=== PATIENT | female | born 1960 | race Caucasian/White ===

== ENCOUNTER → 2024-05-14 | Outpatient (CLI) | payer BC, MEDICARE, SELFPAY ==
--- NOTE | 2024-05-14 13:33 | XR_ITS ---
Examination: Knee, left , 3 views Technique: Knee AP, lateral, oblique 3 views Date and time of exam: 24 1415 hours INDICATIONS: Left knee swelling and pain beginning 4 days ago FINDINGS: Moderate osteopenia Moderate knee effusion No fracture Mild narrowing medial joint space IMPRESSION: Moderate knee effusion
== END | disposition home or self-care (01) ==
PROVIDERS: PCP Nurse Practitioner Family; Referring Provider Nurse Practitioner Family; Visit Provider Nurse Practitioner Family
DX: M25.462 Effusion, left knee (principal)
CPT/HCPCS: 73562

== ENCOUNTER → 2024-06-29 | Outpatient (CLI) | payer OTHER, SELFPAY ==
--- NOTE | 2024-06-29 08:00 | XR_ITS ---
Exam: MRI knee without contrast, left Date and time of exam: June 29, 2024 0858 hours INDICATIONS: Anterior medial left knee pain instability after twisting injury at work one month ago Technique: Multiple axial, coronal, and sagittal sections on the knee have been obtained. T2-Weighted sagittal, fat-suppressed images, TR 3,500, TE 62, T2 weighted coronal fat-saturated images, TR 3,500, TE 62 Proton density sagittal sections, TR 1800, TE 31. T-1 weighted coronal images, TR 524, TE 13.0 Findings: Medial meniscus anterior horn intact. Medial meniscus, body and. Posterior horn medial meniscus peripheral horizontal linear tear. Lateral meniscus anterior horn horizontal linear tear with vertical tear communicating inferior articular surface Lateral meniscus, body is intact Posterior horn lateral meniscus is intact Anterior cruciate ligament mild sprain Posterior cruciate ligament appears intact. Knee effusion is small. Quadriceps and patellar tendons appear intact. There is no evidence of tendinosis. Inflammatory change or fracture of Hoffa's fat pad is not seen. Medial patellar facet demonstrates moderate thinning. Lateral patellar facet cartilage demonstrates moderate thinning. Trochlear cartilage demonstrates moderate thinning. Marrow signal adequate Medial collateral ligament appears intact. No meniscocapsular separation is seen. Illiotibial band and fibular collateral ligament are intact. Biceps femoris tendons appear intact. Medial femoral condylar articular cartilage demonstrates moderate thinning. Lateral femoral condylar articular cartilage demonstratesmoderate thinning. Tibial plateau cartilage demonstrates moderate thinning. Impression: Meniscus tears as above Mild sprain anterior cruciate ligament
== END | disposition home or self-care (01) ==
PROVIDERS: PCP Family Medicine; Referring Provider Family Medicine; Visit Provider Family Medicine
DX: S83.512A Sprain of anterior cruciate ligament of left knee, initial encounter (principal); S83.242A Other tear of medial meniscus, current injury, left knee, initial encounter; X58.XXXA Exposure to other specified factors, initial encounter
CPT/HCPCS: 73721

== ENCOUNTER 2024-07-13 21:28 | Emergency (ER) | payer BC, MEDICARE, MEDICAID, SELFPAY ==
[2024-07-13 21:29] VITALS: BMI 28.3
[2024-07-13 22:02] VITALS: BP 157/90; PULSE 88; RESP 18; TEMP 36.9; O2SAT 99
--- NOTE | 2024-07-13 22:15 | PD.EDEXREM ---
ED Extremity Problem RME/HPI General Chief complaint: Extremity Problem,Nontraumatic Stated complaint: RIGHT SHOULDER PAIN X 1MON Time Seen by Provider: 07/13/24 21:38 Source: patient Arrival date/time: 07/13/24 21:28 63-year-old female with past medical history of right shoulder pain currently seeing branding specialist and has pending MRI presents emergency department complaining of acute flareup of right shoulder pain. Patient denies any recent trauma or injury. Mode of arrival: ambulatory Limitations: no limitations Related Data Home Medications ?Medication ?Instructions ?Recorded ?Confirmed levothyroxine 125 mcg capsule 225 mcg PO QDAY 01/14/19 04/04/19 propranolol 80 mg capsule,24 80 mg PO QDAY 04/04/19 04/04/19 hr,extended release (Inderal LA) Previous Rx's ?Medication ?Instructions ?Recorded cyclobenzaprine 10 mg tablet 10 mg PO TID PRN muscle spasm #10 07/13/24 tabs meloxicam 7.5 mg tablet 7.5 mg PO QDAY #10 tabs 07/13/24 Allergies Allergy/AdvReac Type Severity Reaction Status Date / Time Sulfa (Sulfonamide Allergy Intermediate RASH Verified 07/13/24 21:33 Antibiotics) codeine Allergy Unknown Rash Verified 07/13/24 21:33 lisinopril Allergy Rash Verified 07/13/24 21:33 [place]-ULQ-VkU Reductase Allergy Vomiting Verified 07/13/24 21:33 Inhibitor (Tjrlpxz-Hte-Css Reductase Inhibitor) Review of Systems Review of Systems Systems Reviewed: All systems reviewed, normal except as documented Constitutional Constitutional: Reports system reviewed and no additional complaints, except as documented, Denies body ache(s), Denies chills and Denies fever(s) Eyes Eyes: Reports system reviewed and no additional complaints, except as documented and Denies change in vision ENT Ears, Nose, Mouth, and Throat: Reports system reviewed and no additional complaints, except as documented, Denies disequilibrium, Denies dizziness, Denies sore throat and Denies vertigo Cardiovascular Cardiovascular: Reports system reviewed and no additional complaints, except as documented, Denies chest pain and Denies dyspnea Respiratory Respiratory: Reports system reviewed and no additional complaints, except as documented, Denies chest congestion, Denies cough and Denies dyspnea Gastrointestinal Gastrointestinal: Reports system reviewed and no additional complaints, except as documented, Denies abdominal pain, Denies nausea and Denies vomiting Musculoskeletal Musculoskeletal: Reports system reviewed and no additional complaints, except as documented, Denies abnormal gait and Reports arthralgias Integumentary/Breasts Skin/Breast: Reports system reviewed and no additional complaints, except as documented, Denies erythema, Denies rash and Denies wounds Neurologic Neurologic: Reports system reviewed and no additional complaints, except as documented, Denies abnormal gait, Denies disequilibrium, Denies dizziness and Denies vertigo Past Medical History Past Medical History CARDIAC: Positive Hypertension; Negative Cardiac Disorders or Congestive Heart Failure RESPIRATORY: Negative Chronic Obstructive Pulmonary Disease (COPD) or Asthma GENITOURINARY: Negative Renal Disease ENDOCRINE: Positive Endocrine Disorders, Hypothyroidism and Graves' Disease; Negative Diabetes Mellitus Type 1 or Diabetes Mellitus Type 2 HEMATOLOGIC: Negative Sickle Cell Disease Surgical History SURGICAL: Positive Section Social History SMOKING STATUS: Never smoker ED Exam General Limitations: Present no limitations General appearance: Present alert and in no apparent distress Head Head exam: Present atraumatic Eye Eye exam: Present normal appearance, PERRL and EOMI ENT ENT exam: Present normal exam, normal oropharynx and mucous membranes moist Neck Neck exam: Present normal inspection, full ROM and trachea midline Chest Chest inspection: Present normal inspection and symmetric chest wall rise Respiratory Respiratory exam: Present normal lung sounds bilaterally Cardiovascular Cardiovascular exam: Present regular rate, normal rhythm and normal heart sounds Abdominal Exam Abdominal exam: Present soft and normal bowel sounds Extremities Exam Extremities exam: Present normal inspection and full ROM Expanded Upper Extremity Exam Shoulder exam: Present full ROM (Limited active range of motion right shoulder); Absent tenderness, swelling, ecchymosis or deformity Vascular exam: Normal capillary refill Back Exam Back exam: Present normal inspection and full ROM Neurological Exam Neurological exam: Present alert, oriented X3 and CN II-XII intact Psychiatric Psychiatric exam: Present normal affect and normal mood Skin Skin exam: Present warm, dry, intact and normal color Course Quality Measures none Orders Category Date Time Status Dexamethasone Inj [Decadron Inj] Med 07/13/24 23:41 Discontinued 10 mg IM X1 ONE Diazepam [Valium] Med 07/13/24 22:15 Discontinued 5 mg PO X1 ONE Ketorolac Inj [Toradol Inj] Med 07/13/24 22:15 Discontinued 30 mg IM X1 ONE traMADol HCL [Ultram] Med 07/13/24 23:38 Discontinued 50 mg PO X1 ONE Vital Signs Vital signs: Vital Signs Temperature 98.5 F 02/17/25 22:02 Pulse Rate 88 07/13/24 22:02 Respiratory Rate 18 07/13/24 22:02 Blood Pressure 157/90 H 07/13/24 22:02 Pulse Oximetry (%) 99 07/13/24 22:02 Oxygen Delivery Method Room Air 07/13/24 22:02 99% room air within normal limits Extremity Problem MDM Narrative MDM Narrative:: 63-year-old female with past medical history of right shoulder pain currently seeing branding specialist and has pending MRI presents emergency department complaining of acute flareup of right shoulder pain. Patient denies any recent trauma or injury. Patient's right upper extremity neurovascularly intact with limited active range of motion. Right shoulder no signs of infection erythema swelling or induration. Patient given steroids and pain medication and reported significant improvement in pain. Patient discharged ducted to follow-up with primary care provider and branding specialist as discussed. Patient data External records reviewed:: [facility] previous records Clinical information provided by:: patient Social determinants that could affect healthcare access:: none Patient has the following chronic illnesses:: See chart How is presenting disease/condition affected by chronic disease/condition?: exacerbated by Evaluation data The following diagnostics were reviewed and interpreted by me:: other (specify) (N/A) Lab and/or radiology exams considered but not ordered:: N/A Interpretation Summary: N/A Medications / Prescriptions Medications or Prescriptions considered but not ordered:: Ordered Medication administrations:: Medication Administration History Discontinued Medications Dexamethasone Sodium Phosphate (Dexamethasone Sod Phos Inj 10 Mg/Ml Vial) 10 mg IM X1 ONE Stop: 07/13/24 23:42 Last Admin: 07/13/24 23:47 Dose: 10 mg Documented By: RODRIGUEZ Diazepam (Diazepam 5 Mg Tablet) 5 mg PO X1 ONE Stop: 07/13/24 22:16 Last Admin: 07/13/24 22:21 Dose: 5 mg Documented By: EO Ketorolac Tromethamine (Ketorolac Inj 60 Mg/2 Ml Vial) 30 mg IM X1 ONE Stop: 07/13/24 22:16 Last Admin: 07/13/24 22:22 Dose: 30 mg Documented By: EO Tramadol HCl (Tramadol Hcl 50 Mg Tablet) 50 mg PO X1 ONE Stop: 07/13/24 23:39 Last Admin: 07/13/24 23:47 Dose: 50 mg Documented By: KF Given Consultations Consultation(s) initiated? (list below): No Diagnosis Extremity Problem Differential Diagnosis: deep venous thrombosis of upper extremity and other (Calcific tendinitis) Most likely diagnosis given after review of the tests above:: Patient right shoulder Admission Indicated Admission indicated?: not indicated Admission Request Was there a request for admission?: No Disposition Plan Disposition Plan: Discharge Discharge Attestation Discharge Attestation: The patient and all family members were given an opportunity to ask questions and understood the discharge instructions. Discharge instructions specifically effects, indications for sooner follow up or return to the emergency department, and the expected course of current diagnosis. Patient condition: Stable Discharge Plan Plan Patient Disposition: HOME (Self Care) Disposition Comment: Stable Prescriptions/Referrals Prescriptions/Med Rec: New cyclobenzaprine 10 mg tablet 10 mg PO TID PRN (Reason: muscle spasm) Qty: 10 0RF meloxicam 7.5 mg tablet 7.5 mg PO QDAY Qty: 10 0RF No Action levothyroxine 125 mcg capsule 225 mcg PO QDAY propranolol [Inderal LA] 80 mg Capsule,Extended Release 24 Hr 80 mg PO QDAY Problem List Clinical Impression: Pain in right shoulder Patient/Caregiver Discharge Instructions Discharge Activity: activity as tolerated Education Materials: MU, ED Arthralgia, ED RICE Additional Instructions: Take pain medication as prescribed. Do not take ibuprofen concurrently with meloxicam. Rest, ice, compress, and elevate affected extremity. Follow-up with primary care provider and branding specialist Dr. Segura as discussed. Return to the emergency department for any worsening symptoms or as needed. Print Language: Congolese Stand Alone Forms: [facility]alle Award Info., Patient Portal Info Letter PA/ULTRASOUND MANAGER Supervising Physician PA/ULTRASOUND MANAGER Supervising Physician: Dr. Lebron
[2024-07-13] MEDS: DIAZEPAM 5 MG TABLET PO (22:21)
[2024-07-13] MEDS: KETOROLAC INJ 60 MG/2 ML VIAL 30 MG IM (22:22)
[2024-07-13] MEDS: traMADol HCL 50 MG TABLET PO (23:47)
[2024-07-13] MEDS: DEXAMETHASONE SOD PHOS INJ 10 MG/ML VIAL IM (23:47)
== END 2024-07-14 00:01 | disposition home or self-care (01) ==
LOC: SERX 23:51
PROVIDERS: Emergency Provider Emergency Medicine; PCP Nurse Practitioner Family
DX: M25.511 Pain in right shoulder (principal)
CPT/HCPCS: 96372; 99283; J1100; J1885; A9270

== ENCOUNTER → 2024-07-29 | Outpatient (CLI) | payer BC, MEDICARE, MEDICAID, SELFPAY ==
--- NOTE | 2024-07-29 13:02 | XR_ITS ---
EXAMINATION: Cervical spine, 5 views Technique: Cervical spine AP, AP odontoid, lateral, bilateral obliques, 5 views Exam date and time: July 29, 2024 1334 hours INDICATIONS: Onset neck pain beginning one week ago. FINDINGS: Fusion C5-C6 Advanced degenerative disc disease C6-C7 with moderate bilateral neural foraminal stenosis No fracture Intact odontoid IMPRESSION: Advanced degenerative disc disease C6-C7
--- NOTE | 2024-07-29 13:02 | XR_ITS ---
Examination: Thoracic spine 3 views TECHNIQUE: AP lateral coned lateral upper dorsal spine 3 views Exam date and time: July 30, 2023 1355 hours INDICATIONS: Upper back pain beginning one week ago. FINDINGS: Moderate osteopenia Upper thoracic dextroscoliosis 10 degrees No acute thoracic fracture Moderate diffuse thoracic degenerative disc disease IMPRESSION: Moderate diffuse thoracic degenerative disc disease
--- NOTE | 2024-07-29 13:02 | XR_ITS ---
Examination: Lumbar spine, 5 views Technique: Lumbar spine AP, lateral, coned lateral lower lumbar spine, bilateral obliques 5 views Exam date and time: July 29, 2024 1334 hours INDICATIONS: Low back pain beginning one week ago FINDINGS: Lumbar levoscoliosis 10 degrees Moderate diffuse facet arthropathy No lumbar fracture Moderate degenerative disc disease L4-L5 No spondylolisthesis IMPRESSION: Moderate degenerative disc disease L4-L5
== END | disposition home or self-care (01) ==
PROVIDERS: PCP Nurse Practitioner Family; Referring Provider Nurse Practitioner Family; Visit Provider Nurse Practitioner Family
DX: M50.323 Other cervical disc degeneration at C6-C7 level (principal); M51.369 Other intervertebral disc degeneration, lumbar region without mention of lumbar back pain or lower extremity pain; M51.34 Other intervertebral disc degeneration, thoracic region
CPT/HCPCS: 72050; 72072; 72110

== ENCOUNTER → 2024-08-18 | Outpatient (CLI) | payer BC, SELFPAY ==
[2024-08-18 11:37] LABS: Basophils # (Auto) 0.1 Thou/mm3 (0.0-0.2); Basophils % (Auto) 1 % (0-2.5); Eosinophils # (Auto) 0.1 Thou/mm3 (0.0-0.5); Eosinophils % (Auto) 2 % (0-10); Hematocrit 37.4 % (36.0-46.0); Hemoglobin 11.5 g/dL (12.0-16.0); Immature Granulocytes % (Auto) 0 % (0-0); Immature Granulocytes Auto 0.02 Thou/mm3 (0.00-0.00); Lymphocytes # (Auto) 1.8 Thou/mm3 (1.0-4.8); Lymphocytes % (Auto) 22 % (10-50); Mean Corpuscular HGB Conc 30.7 g/dl (31.0-37.0); Mean Corpuscular Hemoglobin 24.5 pg (25.0-35.0); Mean Corpuscular Volume 80 fL (80-100); Monocytes # (Auto) 0.7 Thou/mm3 (0.0-0.8); Monocytes % (Auto) 8 % (0-12); Neutrophils # (Auto) 5.5 Thou/mm3 (1.8-7.7); Neutrophils % (Auto) 68 % (37-80); Nucleated Red Blood Cell % 0 /100 WBC (0); Platelet Count 458 Thou/mm3 (140-440); RDW Standard Deviation 44.8 fL (36.4-46.3); Red Blood Count 4.69 Miln/mm3 (4.00-5.20); White Blood Count 8.2 Thou/mm3 (3.6-11.0)
[2024-08-18 11:51] LABS: Sed Rate (ESR) 29 mm/hr (0-30)
[2024-08-18 15:55] LABS: Glucose Estimated Average 111 mg/dL (80-131); Hemoglobin A1C 5.5 % Hgb (4.8-6.0)
[2024-08-18 20:45] LABS: Alanine Aminotransferase 18 U/L (10-49); Albumin, Serum 4.3 gm/dL (3.4-4.8); Albumin/Globulin Ratio 1.8 (1.2-2.2); Alkaline Phosphatase 165 U/L (46-116); Anion Gap 8 (7-16); Aspartate Amino Transferase 15 U/L (0-34); BUN/Creatinine Ratio 19 Ratio (12-20); Bilirubin,Total 0.4 mg/dL (0.3-1.2); Blood Urea Nitrogen 13 mg/dL (9-23); C-Reactive Protein 0.9 mg/dL (0.0-0.9); Calcium 9.3 mg/dL (8.3-10.6); Calcium (Corrected) 9.3 mg/dL (8.5-10.1); Carbon Dioxide 26.3 mMol/L (20.0-31.0); Cardiac Risk Estimate 2.4 RATIO (3.7-5.6); Chloride 106 mMol/L (98-107); Cholesterol 150 mg/dL (132-200); Creatine Kinase 32 U/L (34-171); Creatinine (Component) 0.7 mg/dL (0.6-1.3); Free T4 (Free Thyroxine) 2.36 ng/dL (0.89-1.76); Globulin 2.4 gm/dL (2.3-3.5); Glucose 81 mg/dL (74-106); HDL Cholesterol 62 mg/dL (40-60); LDL Cholesterol,Calculated 64 mg/dL (0-130); Osmolality,Calculated 278 (275-295); Potassium 4.3 mMol/L (3.4-5.1); Sodium 140 mMol/L (136-145); Thyroid Stimulating Hormone 0.05 uIU/mL (0.55-4.78); Total Protein 6.7 gm/dL (5.7-8.2); Triglycerides 121 mg/dL (30-150); eGFR > 60 See Note
[2024-08-26 06:43] LABS: ANA Screen, IFA NEGATIVE (NEGATIVE)
== END | disposition home or self-care (01) ==
PROVIDERS: PCP Internal Medicine; Referring Provider Internal Medicine; Visit Provider Internal Medicine
DX: E03.9 Hypothyroidism, unspecified (principal); I10 Essential (primary) hypertension; R53.83 Other fatigue; R21 Rash and other nonspecific skin eruption; M25.512 Pain in left shoulder; M25.511 Pain in right shoulder; R20.2 Paresthesia of skin
CPT/HCPCS: 36415; 80053; 80061; 82550; 83036; 84439; 84443; 85025; 85652; 86038; 86140

== ENCOUNTER → 2024-09-01 | Outpatient (CLI) | payer BC, SELFPAY ==
--- NOTE | 2024-09-01 09:00 | XR_ITS ---
Examination: Screening digital mammography, bilateral Computer aided detection 3-D breast Tomosynthesis, bilateral Date and time of exam: 09/01/2024, 8:35 AM Comparisons: 07/14/2015 Indications: Screening Technique: Nonmagnified MLO, CC views of the breasts to been obtained, reconstructed from 3-D Tomosynthesis images. R2 computer aided detection program utilized for evaluation of suspicious masses and/or abnormal calcifications. 3-D Tomosynthesis images obtained. Technologist: Findings: There are scattered areas of fibroglandular density. No evidence of abnormal masses or suspicious calcifications. Impression: BI-RADS category 1: Negative findings (within normal) Recommend 1 year follow-up mammogram
== END | disposition home or self-care (01) ==
LOC: CDIM 08:27
PROVIDERS: Referring Provider Internal Medicine; Visit Provider Internal Medicine
DX: Z12.31 Encounter for screening mammogram for malignant neoplasm of breast (principal); R92.313 Mammographic fatty tissue density, bilateral breasts
CPT/HCPCS: 77063; 77067

== ENCOUNTER → 2024-10-26 | Outpatient (CLI) | payer BC, MEDICARE, MEDICAID, SELFPAY ==
--- NOTE | 2024-10-26 08:00 | XR_ITS ---
Examination: MRI cervical spine without intravenous contrast Date and time of exam: October 26, 2024 0927 hours INDICATIONS: Sudden onset neck pain beginning 8 months ago Technique: Multiple axial and sagittal sections of the cervical spine to been obtained. T2 weighted sagittal sections, TR 3, 270, TE 117 T1-weighted sagittal sections, TR 500, TE 11 T1-weighted axial sections, TR 607, TE 12, axial sections TR 18, TE 27 and T2 weighted transverse sections, TR 3920, TE 122. Findings: Adequate alignment cervical vertebral bodies Advanced disc narrowing C5-C6, C6-C7 No cervical fracture Hemangiomatous change T2 Localized enlargement cervical cord C2-C3 no disc protrusion C3-C4 right uncinate process hypertrophy advanced right neural foraminal stenosis C4-C5 uncinate process hypertrophy advanced right neural foraminal stenosis C5-C6 moderate bilateral neural foraminal stenosis C6-C7 3 mm central subarticular osteophyte disc complex, advanced left moderate right neural foraminal stenosis C7-T1 moderate bilateral neural foraminal stenosis IMPRESSION: C3-C4, C4-C5 advanced right neural foraminal stenosis C5-C6, C7-T1 moderate bilateral neural foraminal stenosis C6-C7 3 mm central subarticular osteophyte disc complex, advanced left moderate right neural foraminal stenosis
== END | disposition home or self-care (01) ==
LOC: SMRI 09:06
PROVIDERS: PCP Internal Medicine; Referring Provider Internal Medicine; Visit Provider Internal Medicine
DX: M48.02 Spinal stenosis, cervical region (principal); M48.03 Spinal stenosis, cervicothoracic region
CPT/HCPCS: 72141

== ENCOUNTER → 2025-01-18 | Outpatient (CLI) | payer OTHER, SELFPAY ==
--- NOTE | 2025-01-18 09:33 | XR_ITS ---
Examination: Bilateral wrists 6 views TECHNIQUE: AP oblique and lateral uterus total 6 views Date and time: January 18, 2025 0935 hours INDICATIONS: Bilateral wrist pain beginning 9 months ago. FINDINGS: Significant osteopenia Bilateral moderate osteoarthritis, including radiocarpal, intercarpal and especially the first carpometacarpal joints No erosive arthritis No fractures IMPRESSION: Moderate osteoarthritis
== END | disposition home or self-care (01) ==
LOC: CDIM 09:30
PROVIDERS: PCP Internal Medicine; Referring Provider Nurse Practitioner Family; Visit Provider Nurse Practitioner Family
DX: M19.032 Primary osteoarthritis, left wrist (principal); M19.031 Primary osteoarthritis, right wrist
CPT/HCPCS: 73110

== ENCOUNTER 2025-02-10 09:44 | Inpatient (IN) | payer BC, SELFPAY ==
[2025-02-10] VITALS (8 sets, daily range): BP systolic 153–176; BP diastolic 72–98; PULSE 74–108; RESP 14–25; TEMP 36.1–37.1; O2SAT 87–100; BMI 29.6
--- NOTE | 2025-02-10 10:05 | XR_ITS ---
Examination: PA lateral chest 2 views TECHNIQUE: Upright PA lateral chest 2 views Date and time: February 10, 2025 10:10 AM, comparison December 24, 2018 INDICATIONS: Chest pain shortness of breath beginning one week ago. FINDINGS: Retrocardiac gastric hernia. Normal heart size. No lobar pneumonia or pulmonary edema IMPRESSION: No lobar pneumonia or pulmonary edema
--- NOTE | 2025-02-10 10:05 | EDRME_ITS ---
Rapid Medical Screening Exam E Arrival date/time: 02/10/25 09:44 64-year-old female presents the emergency room today for complaints of left- sided lung pain reports shortness of breath ongoing x 1 week Chief Complaint: Chest Pain Vital signs: Vital Signs Temperature 98.8 F 02/10/25 09:49 Pulse Rate 102 H 02/10/25 09:49 Respiratory Rate 18 02/10/25 09:49 Blood Pressure 156/75 H 02/10/25 09:49 Pulse Oximetry (%) 97 02/10/25 09:49 Oxygen Delivery Method Room Air 02/10/25 09:49
--- NOTE | 2025-02-10 10:05 | EKG_ITS ---
[facility] Test Date: 2025-02-10 Pat Name: AD BECK Department: Room: - Gender: Female Workgroup Leader: : 1960 Requested By: Neel Mas (KATARINA) Order Number: [id number] Reading MD: Neel Mas (SENIOR REVENUE ACCOUNTANT) Measurements Intervals [place] Rate: 105 P: 46 TN: 170 QRS: 14 QRSD: 72 T: 33 QT: 307 QTc: 407 Interpretive Statements SINUS TACHYCARDIA NONSPECIFIC ST ELEVATION [0.05+ mV ST ELEVATION] ABNORMAL RHYTHM ECG No previous ECG available for comparison /store/S0/[id number].pdf
[2025-02-10 10:19] LABS: Basophils # (Auto) 0.1 Thou/mm3 (0.0-0.2); Basophils % (Auto) 1 % (0-2.5); Eosinophils # (Auto) 0.2 Thou/mm3 (0.0-0.5); Eosinophils % (Auto) 3 % (0-10); Hematocrit 28.6 % (36.0-46.0); Immature Granulocytes Auto 0.02 Thou/mm3 (0.00-0.00); Lymphocytes # (Auto) 1.6 Thou/mm3 (1.0-4.8); Lymphocytes % (Auto) 22 % (10-50); Mean Corpuscular HGB Conc 28.0 g/dl (31.0-37.0); Mean Corpuscular Hemoglobin 19.6 pg (25.0-35.0); Mean Corpuscular Volume 70 fL (80-100); Monocytes # (Auto) 0.5 Thou/mm3 (0.0-0.8); Monocytes % (Auto) 7 % (0-12); Neutrophils # (Auto) 4.9 Thou/mm3 (1.8-7.7); Neutrophils % (Auto) 67 % (37-80); Nucleated Red Blood Cell # 0.00 Thou/mm3 (0.00-0.00); Nucleated Red Blood Cell % 0 /100 WBC (0); Platelet Count 531 Thou/mm3 (140-440); RDW Standard Deviation 43.2 fL (36.4-46.3); Red Blood Count 4.09 Miln/mm3 (4.00-5.20); White Blood Count 7.4 Thou/mm3 (3.6-11.0)
[2025-02-10 10:25] LABS: Hemoglobin 8.0 g/dL (12.0-16.0)
[2025-02-10 10:40] LABS: Alanine Aminotransferase 25 U/L (10-49); Albumin, Serum 4.1 gm/dL (3.4-4.8); Albumin/Globulin Ratio 1.6 (1.2-2.2); Alkaline Phosphatase 183 U/L (46-116); Anion Gap 9 (7-16); Aspartate Amino Transferase 13 U/L (0-34); BUN/Creatinine Ratio 14 Ratio (12-20); Bilirubin,Total 0.4 mg/dL (0.3-1.2); Blood Urea Nitrogen 10 mg/dL (9-23); Calcium 9.1 mg/dL (8.3-10.6); Calcium (Corrected) 9.1 mg/dL (8.5-10.1); Carbon Dioxide 27.4 mMol/L (20.0-31.0); Chloride 106 mMol/L (98-107); Creatinine (Component) 0.7 mg/dL (0.6-1.3); Estimated Creatinine Clearance 74.2 mL/min (>60); Globulin 2.6 gm/dL (2.3-3.5); Glucose 122 mg/dL (74-106); Osmolality,Calculated 283 (275-295); Potassium 4.0 mMol/L (3.4-5.1); Sodium 142 mMol/L (136-145); Total Protein 6.7 gm/dL (5.7-8.2); Troponin I < 0.020 ng/mL (0.0-0.045); eGFR > 60 See Note
--- NOTE | 2025-02-10 11:59 | XR_ITS ---
Examination: CTA chest with intravenous contrast 2-D reconstructions 3-D reconstructions, vascular Date and time of exam: February 10, 2025 1419 hours INDICATIONS: Left-sided chest pain shortness of breath today, clinical diagnosis pulmonary emboli CTDI: vol (mGy) 12.1 DLP: (mGycm) 280 Technique: Multiple axial sections of the thorax have been obtained. 3 mm slice thickness, from below the hemidiaphragms to above the apices of the lungs. Mediastinal and lung density settings have been obtained. 2-D sagittal and coronal reconstructions. 3-D angiographic renderings, 3-D volume renderings, 3D post processing, vascular maximum intensity projections obtained. Contrast administered is 100 cc Isovue-370. Low dose protocols were performed. One or more of the following dose reduction techniques were used; automated exposure control, adjustment of the mA and/or KV according to patient size, use of iterative reconstruction technique. Findings: No thoracic aortic aneurysm dilatation or dissection No pulmonary artery filling defects No paratracheal tracheobronchial or bronchopulmonary adenopathy No pneumonia or pulmonary edema or pleural disease No visualized liver or splenic lesion No gallstones IMPRESSION: Negative for pulmonary artery emboli No pneumonia, pulmonary edema or pleural disease
--- NOTE | 2025-02-10 12:01 | EDNOTE_ITS ---
<Statement entered by Tracey Schulz MD - 03/01/25 06:07> As co-signing physician, I was present and available for consult prn. I concur with the plan and care as documented by the midlevel provider. ED Chest Pain RME/HPI General Chief Complaint: Chest Pain Stated Complaint: LEFT LUNG PAIN Time Seen by Provider: 02/10/25 11:51 Arrival date/time: 02/10/25 09:44 RME / HPI RME / HPI narrative: 64-year-old female presents the emergency room today for complaints of left- sided lung pain reports shortness of breath ongoing x 1 week. Described as sharp pain, severity moderate. Pain is worse with the pressing and range of motion of the shoulder joints. Patient denies any cough denies any shortness of breath. Denies any chest trauma or fall denies any fever. Denies any other complaints no medication was taken prior to ER visit. Related Data Home Medications ?Medication ?Instructions ?Recorded ?Confirmed levothyroxine 125 mcg capsule 225 mcg PO QDAY 01/14/19 04/04/19 propranolol 80 mg capsule,24 80 mg PO QDAY 04/04/19 hr,extended release (Inderal LA) Previous Rx's ?Medication ?Instructions ?Recorded cyclobenzaprine 10 mg tablet 10 mg PO TID PRN muscle s pasm #10 07/13/24 tabs meloxicam 7.5 mg tablet 7.5 mg PO QDAY #10 tabs 06/27 12/18 Allergies Allergy/AdvReac Type Severity Reaction Status Date / Time Sulfa (Sulfonamide Allergy Intermediate RASH Verified 07/13/24 21:33 Antibiotics) codeine Allergy Unknown Rash Verified 07/13/24 21:33 lisinopril Allergy Rash Verified 07/13/24 21:33 Kxuepum-FXT-UwJ Reductase Allergy Vomiting Verified 07/13/24 21:33 Inhibitor (Laniojs-Agh-Ewn Reductase Inhibitor) Review of Systems Review of Systems Narrative Review of Systems: Review of system reviewed and within normal limits except mentioned in HPI ED Exam Narrative Physical exam: VITAL SIGNS: Reviewed. GENERAL APPEARANCE: Alert and interactive, follows commands, no acute distress, HEAD AND FACE: Non-traumatic. ENT: PERRL, pink conjunctivitis, eyelid no trauma, Mucous membrane moist. NECK: Supple, nontender, no nuchal rigidity. CHEST: Left chest tenderness, no crepitus, no paradoxical movement, no retractions. LUNGS: Clear, well ventilated, symmetric, no rales, no wheezing, no ronchi, no stridor, good breath sounds bilaterally. HEART: Regular rate, regular rhythm, no murmur, no gallops. ABDOMEN: Soft, positive bowel sounds, nondistended, no guarding, nontender, no rebound, no masses, RECTAL: Deferred. GENITAL: Deferred. NEUROLOGICAL: Gross motor function intact sensory function intact, Appropriate for age. MUSCULOSKELETAL: low back nontender, full range of motion. EXTREMITIES: Nontender, full range of motion. SKIN: Color pink, dry, no rash, no lacerations, no abrasions, no contusions. LYMPHATICS: Deferred. Course Quality Measures none Orders Category Date Time Status CT Screening NOW Care 02/10/25 11:59 Active EKG (ED ONLY) *Do not use* NOW Care 02/10/25 10:05 Completed NPO NOW Care 02/10/25 15:43 Active Occult Blood,Stool (Nursing) ONCE Care 02/10/25 11:59 Active Consult to Gastroenterology Stat Cons 02/10/25 15:07 Ordered Diet NPO (NOW) Diet 02/10/25 15:[address] angio chest Stat Exams 02/10/25 11:59 Completed EKG (ED Only) Stat Exams 02/10/25 10:05 Draft XR chest 2V Stat Exams 02/10/25 10:05 Completed CBC Stat Lab 02/10/25 10:10 Completed Comprehensive Metabolic Panel Stat Lab 02/10/25 10:10 Completed PTT [Partial Thromboplastin Time] Stat Lab 02/10/25 10:10 Completed Troponin I Stat Lab 02/10/25 10:10 Completed HYDROmorphone INJ [Dilaudid Inj] Med 02/10/25 11:59 Discontinued 1 mg IVP X1 ONE Ondansetron Inj [Zofran Inj] Med 02/10/25 11:59 Discontinued 4 mg IVP X1 ONE Pantoprazole Inj [Protonix Inj] Med 02/10/25 15:06 Discontinued 80 mg IVP X1 ONE Vital Signs Vital signs: Vital Signs Temperature 98.8 F 02/10/25 09:49 Pulse Rate 102 H 02/10/25 09:49 Respiratory Rate 18 02/10/25 09:49 Blood Pressure 156/75 H 02/10/25 09:49 Pulse Oximetry (%) 97 02/10/25 09:49 Oxygen Delivery Method Room Air 02/10/25 09:49 Chest Pain [facility] Narrative [facility] Narrative:: 64-year-old female presents the emergency room today for complaints of left- sided lung pain reports shortness of breath ongoing x 1 week. Described as sharp pain, severity moderate. Pain is worse with the pressing and range of motion of the shoulder joints. Patient denies any cough denies any shortness of breath. Denies any chest trauma or fall denies any fever. Denies any other complaints no medication was taken prior to ER visit. EKG shows sinus tachycardia, ventricular to 105 bpm, no ST segment elevation depression noted. Laboratory workup including troponin all came back normal. R epeat troponin is not needed at this time patient is having chest pain for 1 week now. Patient chest pain is not reproducible could be secondary to costochondritis. Patient's hemoglobin is significantly lower today 8.0 and hematocrit of 28.6, last July it was 11.5. I did a rectal exam, and it was strong positive for occult blood. Patient is probably having slow GI bleed. Spoke with hospitalist, who admitted the patient. Patient was started on Protonix IV. I also spoke with GI specialist Dr. Mccallum, discussed the case, and will scope the patient tomorrow. Patient data External records reviewed:: None Clinical information provided by:: patient Social determinants that could affect healthcare access:: none Patient has the following chronic illnesses:: None How is presenting disease/condition affected by chronic disease/condition?: no chronic disease Evaluation data The following diagnostics were reviewed and interpreted by me:: lab results, radiology exam(s) and EKG tracing(s) Lab and/or radiology exams considered but not ordered:: None see results MDM Interpretation Summary: See results MDM Medications / Prescriptions Medications or Prescriptions considered but not ordered:: None Medication administrations:: Medication Administration History Discontinued Medications Hydromorphone HCl (Hydromorphone Inj 2 Mg/Ml Vial) 1 mg IVP X1 ONE Stop: 02/10/25 12:00 Last Admin: 02/10/25 12:47 Dose: 1 mg Documented By: OPAL Ondansetron HCl (Ondansetron Inj 2 Mg/Ml Inj 2 Ml) 4 mg IVP X1 ONE; Protocol Stop: 02/10/25 12:00 Last Admin: 02/10/25 12:47 Dose: 4 mg Documented By: TM Pantoprazole Sodium (Pantoprazole Inj 40 Mg Vial) 80 mg IVP X1 ONE Stop: 02/10/25 15:07 Last Admin: 02/10/25 15:39 Dose: 80 mg Documented By: OPAL Protonix Zofran and Dilaudid Consultations Consultation(s) initiated? (list below): No Diagnosis Chest Pain Differential Diagnosis: pneumothorax, costochondritis and chest pain Most likely diagnosis given after review of the tests above:: Upper GI bleed, anemia, chest pain, costochondritis Admission Indicated Admission indicated?: indicated Admission Request Was there a request for admission?: Yes Admission Attestation Admission request attestation: Discussed case with [Dr. Huitron] from Hospitalist service regarding admission. Discussed patients ED course, exam findings, labs, and radiology results. The Hospitalist [agrees,] to accept the patient for admission. Disposition Plan Disposition Plan: Admit Discharge Plan Plan Patient Disposition: Admit Acute Care w/in Hospital Discharge Disposition comment: Stable Prescriptions/Referrals Prescriptions/Med Rec: No Action levothyroxine 125 mcg capsule 225 mcg PO QDAY propranolol [Inderal LA] 80 mg Capsule,Extended Release 24 Hr 80 mg PO QDAY cyclobenzaprine 10 mg tablet 10 mg PO TID PRN (Reason: muscle spasm) Qty: 10 0RF meloxicam 7.5 mg tablet 7.5 mg PO QDAY Qty: 10 0RF Referrals: Abe Rivera DO [Primary Care Provider] - In 1 week Problem List Clinical Impression: Chest pain, UGIB (upper gastrointestinal bleed), Anemia Patient/Caregiver Discharge Instructions Discharge Activity: activity as tolerated Education Materials: Anemia Print Language: Luxembourgish Stand Alone Forms: [facility] Award Info., Patient Portal Info Letter
[2025-02-10 12:23] LABS: Partial Thromboplastin Time 21.6 Seconds (22.0-36.0)
[2025-02-10] MEDS: ONDANSETRON INJ 2 MG/ML INJ 2 ML 4 MG IVP (12:47)
[2025-02-10] MEDS: HYDROmorphone INJ 2 MG/ML VIAL 1 MG IVP (12:47)
[2025-02-10 17:24] LABS: Hematocrit 27.9 % (36.0-46.0)
[2025-02-10 17:26] LABS: Hemoglobin 7.7 g/dL (12.0-16.0)
--- NOTE | 2025-02-10 17:26 | ESCONSULT_ITS ---
HPI Data of Consult Primary Care Provider: Abe Rivera DO Consult Narrative Reason for consult: Positive FOBT with anemia History of present illness: 64-year-old female with PMH of thyroid disease on levothyroxine presents to the ED for evaluation of left-sided chest pain described as ?lung pain? and associated shortness of breath for 1 week. Pain was sharp, moderate, worse with palpation and shoulder movement. ED workup included CTA chest (negative for PE, pneumonia, pulmonary edema), CXR negative, EKG sinus tachycardia 105 bpm without ischemic changes, troponins negative. Chest pain suspected musculoskeletal/costochondritis. Incidentally, labs showed hemoglobin 8.0 (previously 11.5 in July), Hct 28.6, MCV 70, platelets 531. Rectal exam was strongly positive for occult blood. She was started on IV Protonix. On GI evaluation, patient denies hematemesis, melena, hematochezia, nausea, or vomiting. Reports looser stools over the past month but no meron blood. Denies NSAID, aspirin, or anticoagulant use. Denies fevers, weight loss, or abdominal pain. She reports feeling somewhat lightheaded but denies chest pain or shortness of breath currently. No prior colonoscopy or EGD. ROS: * Constitutional: No fevers, chills, or weight loss * GI: Loose stools x1 month, denies hematemesis, melena, hematochezia, abdominal pain, nausea, or vomiting * : No dysuria, hematuria * Cardiac: Denies chest pain, palpitations * Pulm: Denies cough, SOB at rest PMH: Thyroid disease PSH: * 3x C-sections * Laminectomy/discectomy L4-L5 * Cervical spine surgery C5-C6 Medications: Levothyroxine 150 mcg daily Allergies: Sulfa drugs, Lisinopril, Statins Family History: * Maternal grandfather: metastatic melanoma (brain involvement) * Maternal grandmother: cancer (type unknown) * No known colon cancer Social History: * Quit smoking a few months ago (prior smoker) * Occasional alcohol * No drug use cc:: cc: Exam Vital Signs Temp Pulse Resp BP Pulse Ox O2 Del Method 98 F 108 H 15 161/97 H 100 Room Air 02/10/25 16:00 02/10/25 16:00 02/10/25 16:00 02/10/25 16:00 02/10/25 16:00 02/10/25 16:00 Narrative Exam General: Alert, interactive, no acute distress Chest: Tenderness over left chest wall, lungs clear Heart: Regular rate and rhythm Abdomen: Soft, nondistended, no tenderness or guarding, normal bowel sounds Extremities: No edema Results Labs 02/10/25 17:14 02/10/25 10:10 Labs: Short CBC 02/10/25 02/10/25 Range/Units 10:10 17:14 WBC 7.4 (3.6-11.0) Thou/mm3 Hgb 8.0 L 7.7 L (12.0-16.0) g/dL Hct 28.6 L 27.9 L (36.0-46.0) % Plt Count 531 H (140-440) Thou/mm3 BMP 02/10/25 10:10 Sodium 142 Potassium 4.0 Chloride 106 Carbon Dioxide 27.4 BUN 10 Creatinine 0.7 Glucose 122 H Calcium 9.1 Cardiac Enzymes 02/10/25 Range/Units 10:10 Troponin I < 0.020 (0.0-0.045) ng/mL Liver Function 02/10/25 Range/Units 10:10 Total Bilirubin 0.4 (0.3-1.2) mg/dL AST 13 (0-34) U/L ALT 25 (10-49) U/L Alkaline Phosphatase 183 H (46-116) U/L Albumin 4.1 (3.4-4.8) gm/dL Quality Measures Quality Measures VTE prophylaxis Medications Home Medications and Allergies Home Medications ?Medication ?Instructions ?Recorded ?Confirmed ?Type levothyroxine 125 mcg capsule 225 mcg PO QDAY 01/14/19 02/10/25 History propranolol 80 mg capsule,24 80 mg PO QDAY 04/04/19 History hr,extended release (Inderal LA) Allergies Allergy/AdvReac Type Severity Reaction Status Date / Time Sulfa (Sulfonamide Allergy Intermediate RASH Verified 07/13/24 21:33 Antibiotics) codeine Allergy Unknown Rash Verified 07/13/24 21:33 lisinopril Allergy Rash Verified 07/13/24 21:33 Ewvbkjy-IAH-DcK Reductase Allergy Vomiting Verified 07/13/24 21:33 Inhibitor (Aaddfxv-Keo-Ovm Reductase Inhibitor) Visit Medications Acetaminophen (Acetaminophen 325 Mg Tablet) 650 mg PO Q6H PRN PRN Reason: Fever >100.1 or pain 1-3 Stop: 03/12/25 17:05 Levothyroxine Sodium 125 mcg/ (Levothyroxine Sodium 25 mcg) 150 mcg PO ACBR GENA Stop: 03/13/25 05:59 Ondansetron HCl (Ondansetron Inj 2 Mg/Ml Inj 2 Ml) 4 mg IVP Q6H PRN; Protocol PRN Reason: NAUSEA OR VOMITING Stop: 03/12/25 17:05 Pantoprazole Sodium (Pantoprazole Inj 40 Mg Vial) 40 mg IVP Q12HR GENA Stop: 03/13/25 05:59 Discontinued Medications Hydromorphone HCl (Hydromorphone Inj 2 Mg/Ml Vial) 1 mg IVP X1 ONE Stop: 02/10/25 12:00 Last Admin: 02/10/25 12:47 Dose: 1 mg Levothyroxine Sodium (Levothyroxine Sodium 125 Mcg Tablet) 150 mcg PO DAILY GENA Stop: 03/13/25 08:59 Ondansetron HCl (Ondansetron Inj 2 Mg/Ml Inj 2 Ml) 4 mg IVP X1 ONE; Protocol Stop: 02/10/25 12:00 Last Admin: 02/10/25 12:47 Dose: 4 mg Pantoprazole Sodium (Pantoprazole Inj 40 Mg Vial) 80 mg IVP X1 ONE Stop: 02/10/25 15:07 Last Admin: 02/10/25 15:39 Dose: 80 mg Assessment & Plan Plan 64-year-old female with history of thyroid disease presenting with incidental anemia (Hgb 8.0, prior 11.5 in July) and positive FOBT. MCV 70 suggests iron deficiency anemia, likely secondary to chronic GI blood loss. No prior colonoscopy or EGD, no overt GI bleeding symptoms, no NSAID/ASA use. Hemodynamically stable, chest pain workup negative. # Melena (positive FOBT, occult GI bleed) 64F with new anemia (Hgb 8.0 from 11.5 in July) and positive FOBT, concerning for slow GI bleed. Plan: * Continue IV PPI (Protonix) * GI to arrange for EGD for evaluation of upper GI source tomorrow * Trend H/H * Type & screen; transfuse PRBC if Hb <7 or if symptomatic * Maintain hemodynamic monitoring # Iron deficiency anemia, unspecified? Microcytic indices (MCV 70), thrombocytosis, consistent with chronic blood loss anemia. Plan: * Order iron studies (ferritin, iron panel, TIBC), vitamin B12, folate, reticulocyte count * Monitor for ongoing losses # Other chest pain Per primary team ----- Plan discussed with attending physician Dr. Alessio Jay MD PGY-1 Internal Medicine Attending Provider Attestation/Addendum Patient evaluated case discussed with the ER physician/physician catering administrative assistant/ENTRY EXAMINER patient's medical records laboratory data and x-ray imaging reviewed Consent obtained for fiberoptic esophagogastroduodenoscopy with possible biopsy possible therapeutic intervention under intravenous moderate sedation and if that is negative we will consider doing a fiberoptic colonoscopy Thank you for the opportunity to participate in the care of this patient
--- NOTE | 2025-02-10 17:36 | ESHP_ITS ---
<Statement entered by Linda Florian MD - 02/18/25 17:35> I reviewed above note and agree with findings and plans. I have also personally examined the patient with medicine team and went over assessment and plan with medical team including actuarial internship and resident physician. Documentation for date of: 02/10/25 HPI History of Present Illness Chief complaint: chest pain History of present illness: Priyanka Thomas is 64 yr female with PMH of hypothyroidism presenting to ED with chief complaint of chest pain that started about 1 week ago. Patient has history of pleuritic chest pain since childhood that resolved with anti- inflammatory agents lasting only a few days. Visit to ED this time was due to duration of the pain lasting more than average. She has been trying [id number] ibuprofen which did not provide much relief. Pain is worse with coughing, deep breathing, movement. Currently 01/03. Patient states she has to do shallow breathing to avoid pain. Her PCP is Dr. Meyer who is unaware of these episodes over the pleuritic chest pain. Per chart review patient used to be on propranolol but stated that she has not been taking it for the past couple of months. Further workup showed that hemoglobin had downtrended since last admission and July of this year. She denies any hematemesis, hematochezia, melena. Denies ever having colonoscopy in the past. Diet has been normal. No complaints of abdominal pain, diarrhea, or constipation. In ED, vitals significant for elevated blood pressure 153/98, tachycardia 100, saturating 93% on 2 L oxygen nasal cannula. CBC significant for downtrending hemoglobin from 11.5 in July to 8, MCV 70 hematocrit 28 platelets 530. Other labs unremarkable. EKG showed sinus tachy with no ST changes. Troponins were negative. CTA chest was negative for PE or pleural disease. Occult test was positive. GI Dr. Mccallum was consulted. Patient was given 80 mg Protonix and admitted for acute blood loss anemia secondary to GI bleed. Start golytely and colonoscopy possibly tomorrow. PMH: As noted above PSH: 3 C-sections, L4 laminectomy, C5-C6 fusion Family history: Negative for heart disease, stroke, cancers. Sister has similar problem of the pleuritic chest pain. Possible autoimmune disease in family. Meds: Levothyroxine 150 mcg daily, discontinued propranolol few months ago. Social: Works at [email or web address]. Denies smoking, denies drinking. Allergies: refer to chart Review of Systems Review of Systems Systems Reviewed: All systems reviewed, normal except as documented Exam Vital Signs Temp Pulse Resp BP Pulse Ox O2 Del Method 98 F 108 H 15 161/97 H 100 Room Air 02/10/25 16:00 02/10/25 16:00 02/10/25 16:00 02/10/25 16:00 02/10/25 16:00 02/10/25 16:00 Narrative Exam General: Middle age female. No acute distress, cooperative HEENT: NCAT, No JVD noted. Mucosa moist. Pupils are equal and reactive to light bilaterally Cardiovascular: Normal S1 and S2. Tachycardia. Regular rhythm. Chest pain reproducible. Respiratory: Lungs are clear to auscultation bilaterally. No wheezing or crackles heard. Abdomen: Soft, nontender, not distended, normal bowel sounds. Skin: Warm to touch, dry, no rashes noted Musculoskeletal: No gross injuries. Able to move all 4 extremities. No pitting edema Neuro: Alert and oriented x3. No focal neuro deficits. Psych: Normal affect and mood Results: Labs 02/10/25 17:14 02/10/25 10:10 Labs: Short CBC 02/10/25 02/10/25 Range/Units 10:10 17:14 WBC 7.4 (3.6-11.0) Thou/mm3 Hgb 8.0 L 7.7 L (12.0-16.0) g/dL Hct 28.6 L 27.9 L (36.0-46.0) % Plt Count 531 H (140-440) Thou/mm3 BMP 02/10/25 10:10 Sodium 142 Potassium 4.0 Chloride 106 Carbon Dioxide 27.4 BUN 10 Creatinine 0.7 Glucose 122 H Calcium 9.1 Cardiac Enzymes 02/10/25 Range/Units 10:10 Troponin I < 0.020 (0.0-0.045) ng/mL Liver Function 02/10/25 Range/Units 10:10 Total Bilirubin 0.4 (0.3-1.2) mg/dL AST 13 (0-34) U/L ALT 25 (10-49) U/L Alkaline Phosphatase 183 H (46-116) U/L Albumin 4.1 (3.4-4.8) gm/dL Quality Measures Quality Measures none Medications Home Medications and Allergies Home Medications ?Medication ?Instructions ?Recorded ?Confirmed ?Type levothyroxine 125 mcg capsule 225 mcg PO QDAY 01/14/19 02/10/25 History propranolol 80 mg capsule,24 80 mg PO QDAY 04/04/19 History hr,extended release (Inderal LA) Allergies Allergy/AdvReac Type Severity Reaction Status Date / Time Sulfa (Sulfonamide Allergy Intermediate RASH Verified 07/13/24 21:33 Antibiotics) codeine Allergy Unknown Rash Verified 07/13/24 21:33 lisinopril Allergy Rash Verified 07/13/24 21:33 Imrtlfq-QIC-HrW Reductase Allergy Vomiting Verified 07/13/24 21:33 Inhibitor (Uxrofbm-Obu-Ona Reductase Inhibitor) Visit Medications Acetaminophen (Acetaminophen 325 Mg Tablet) 650 mg PO Q6H PRN PRN Reason: Fever >100.1 or pain 1-3 Stop: 03/12/25 17:05 Levothyroxine Sodium 125 mcg/ (Levothyroxine Sodium 25 mcg) 150 mcg PO ACBR GENA Stop: 03/13/25 05:59 Ondansetron HCl (Ondansetron Inj 2 Mg/Ml Inj 2 Ml) 4 mg IVP Q6H PRN; Protocol PRN Reason: NAUSEA OR VOMITING Stop: 03/12/25 17:05 Pantoprazole Sodium (Pantoprazole Inj 40 Mg Vial) 40 mg IVP Q12HR GENA Stop: 03/13/25 05:59 Discontinued Medications Hydromorphone HCl (Hydromorphone Inj 2 Mg/Ml Vial) 1 mg IVP X1 ONE Stop: 02/10/25 12:00 Last Admin: 02/10/25 12:47 Dose: 1 mg Levothyroxine Sodium (Levothyroxine Sodium 125 Mcg Tablet) 150 mcg PO DAILY GENA Stop: 03/13/25 08:59 Ondansetron HCl (Ondansetron Inj 2 Mg/Ml Inj 2 Ml) 4 mg IVP X1 ONE; Protocol Stop: 02/10/25 12:00 Last Admin: 02/10/25 12:47 Dose: 4 mg Pantoprazole Sodium (Pantoprazole Inj 40 Mg Vial) 80 mg IVP X1 ONE Stop: 02/10/25 15:07 Last Admin: 02/10/25 15:39 Dose: 80 mg Assessment & Plan Plan Priyanka Thomas is 64 yr female with PMH of hypothyroidism presenting to ED with chief complaint of chest pain that started about 1 week ago. Pleuritic in nature. Hb on admission was 8. Occult test was positive. GI Dr. Mccallum was consulted. Patient was given 80 mg Protonix and admitted for acute blood loss anemia secondary to GI bleed. #Acute blood loss anemia 2/2 #GI bleed #Sinus Tachychardia Unknown if upper vs lower at this time. Patient denies hematemasis or melena. CBC significant for downtrending hemoglobin from 11.5 in July to 8, MCV 70 hematocrit 28 platelets 530. CTA chest was negative for PE or pleural disease. Occult test was positive. GI Dr. Mccallum was consulted. Patient was given 80 mg Protonix in ED. -Dr. Mccallum consulted, appreciate recs -NPO EGD tomorrow -IV Pantoprazole 40 mg BID -type and screen -daily CBC -transfuse if Hb <7 -iron pannel pending -Hold NSAIDs, antiplatelets -continue to monitor vitals #Hypothyroidism Resume home dose levothyroxine 150mcg daily -TSH pending #ACS rule out-ruled out Health maintenance: Dispo: GI bleed, NPO midnight for EGD tomorrow. FEN: NPO midnight DVT prophylaxis: SCDs CODE STATUS: Full code The patient's management plan was discussed with my attending physician Dr. Florian. Tasha Downing, PGY-2
[2025-02-10 18:32] LABS: Immature Reticulocyte Fraction 24.2 % (3.0-15.9); Reticulocyte % (Auto) 2.2 % (0.5-1.5); Reticulocyte Absolute Auto 88.9 Biln/L (25.0-75.0); Reticulocyte Hgb Content 17.1 pg (28.0-35.0)
--- NOTE | 2025-02-10 18:45 | PC.NURSE ---
CALLED MD TO REQUEST PAIN MEDICATION. MD WILL PUT IN NEW ORDER
[2025-02-10 19:25] LABS: Ferritin 3 ng/mL (7.3-270.7); Iron 17 mcg/dL (50-170); Percent Iron Saturation 3 % (20-55); Total Iron Binding Capacity 503 mcg/dL (250-425); Unsaturated Iron Binding 486 (225-295)
[2025-02-10 19:26] LABS: Folate 12.29 ng/mL (>5.38); Vitamin B12 972 pg/mL (211-911)
[2025-02-10] MEDS: MORPHINE SULF INJ 4 MG/ML VIAL 1 MG IVP (20:21)
[2025-02-10] MEDS: NA SU/NAHCO3/KC/PEG (Golytely) 4,000 ML BTL 4000 ML PO (22:35)
[2025-02-10] MEDS: ACETAMINOPHEN 325 MG TABLET 650 MG PO (22:56)
[2025-02-11] VITALS (21 sets, daily range): BP systolic 90–175; BP diastolic 61–98; PULSE 72–100; RESP 10–20; TEMP 36.1–36.6; O2SAT 92–99
[2025-02-11] MEDS: LEVOTHYROXINE SODIUM 125 MCG, LEVOTHYROXINE SODIUM 25 MCG 150 MCG PO (05:09)
[2025-02-11] MEDS: MORPHINE SULF INJ 4 MG/ML VIAL 1 MG IVP (05:09)
[2025-02-11 06:04] LABS: Basophils # (Auto) 0.1 Thou/mm3 (0.0-0.2); Basophils % (Auto) 1 % (0-2.5); Eosinophils # (Auto) 0.3 Thou/mm3 (0.0-0.5); Eosinophils % (Auto) 4 % (0-10); Hematocrit 29.8 % (36.0-46.0); Immature Granulocytes Auto 0.02 Thou/mm3 (0.00-0.00); Lymphocytes # (Auto) 2.0 Thou/mm3 (1.0-4.8); Lymphocytes % (Auto) 27 % (10-50); Mean Corpuscular HGB Conc 27.5 g/dl (31.0-37.0); Mean Corpuscular Hemoglobin 19.3 pg (25.0-35.0); Mean Corpuscular Volume 70 fL (80-100); Monocytes # (Auto) 0.7 Thou/mm3 (0.0-0.8); Monocytes % (Auto) 9 % (0-12); Neutrophils # (Auto) 4.3 Thou/mm3 (1.8-7.7); Neutrophils % (Auto) 58 % (37-80); Nucleated Red Blood Cell # 0.00 Thou/mm3 (0.00-0.00); Nucleated Red Blood Cell % 0 /100 WBC (0); Platelet Count 462 Thou/mm3 (140-440); RDW Standard Deviation 42.6 fL (36.4-46.3); Red Blood Count 4.25 Miln/mm3 (4.00-5.20); White Blood Count 7.4 Thou/mm3 (3.6-11.0)
[2025-02-11 06:06] LABS: Hemoglobin 8.2 g/dL (12.0-16.0)
[2025-02-11 06:21] LABS: Alanine Aminotransferase 20 U/L (10-49); Albumin, Serum 3.9 gm/dL (3.4-4.8); Albumin/Globulin Ratio 1.5 (1.2-2.2); Alkaline Phosphatase 173 U/L (46-116); Anion Gap 9 (7-16); Aspartate Amino Transferase 12 U/L (0-34); BUN/Creatinine Ratio 13 Ratio (12-20); Bilirubin,Total 0.5 mg/dL (0.3-1.2); Blood Urea Nitrogen 8 mg/dL (9-23); Calcium 9.0 mg/dL (8.3-10.6); Calcium (Corrected) 9.1 mg/dL (8.5-10.1); Carbon Dioxide 29.8 mMol/L (20.0-31.0); Chloride 104 mMol/L (98-107); Creatinine (Component) 0.6 mg/dL (0.6-1.3); Estimated Creatinine Clearance 86.6 mL/min (>60); Globulin 2.6 gm/dL (2.3-3.5); Glucose 87 mg/dL (74-106); Magnesium 1.8 mg/dL (1.6-2.6); Osmolality,Calculated 282 (275-295); Phosphorous 4.0 mg/dL (2.4-5.1); Potassium 4.2 mMol/L (3.4-5.1); Sodium 143 mMol/L (136-145); Thyroid Stimulating Hormone 0.05 uIU/mL (0.55-4.78); Total Protein 6.5 gm/dL (5.7-8.2); eGFR > 60 See Note
[2025-02-11] MEDS: Magnesium Sulfate 4 GM Ivpb 4 GM/50 ML BAG IV (08:35)
[2025-02-11] MEDS: ACETAMINOPHEN 325 MG TABLET 650 MG PO ×2 (08:36→15:22)
--- NOTE | 2025-02-11 10:37 | ESPR_ITS ---
<Statement entered by Linda Florian MD - 02/18/25 17:35> I reviewed above note and agree with findings and plans. I have also personally examined the patient with medicine team and went over assessment and plan with medical team including audit intern and resident physician. <Statement entered by Deborah Redding MD - 02/11/25 16:06> I discussed with and supervised the audit intern physician who took care of this patient. I personally saw and examined the patient and discussed the assessment and plan with the entire medicine team, including my attending Dr. Florian, I agree with most of the assessment and plan as documented below Deborah Redding M.D. PGY-3 Disclaimer: Despite multiple revisions, due to the dictation software being used, the document bellow may not be free of grammatical errors including phonetic/typographic errors. However, this does not deter from our commitment to providing health care in the patient's best interest in mind. Documentation for date of: 02/11/25 Subjective Subjective Interval history: William is 64 yr female with PMH of hypothyroidism presenting to ED with chief complaint of chest pain that started about 1 week ago. Pleuritic in nature. Hb on admission was 8. Occult test was positive. GI Dr. Mccallum was consulted. Patient was given 80 mg Protonix and admitted for acute blood loss anemia secondary to GI bleed. 02/11/2025: NPO pending EGD and colonoscopy with Dr. Mccallum, intermittntly having headaches, that resolve with tylenol. Exam Vital Signs Temp Pulse Resp BP Pulse Ox O2 Del Method O2 Flow Rate 97.1 F 87 17 158/93 H 92 L Room Air 2 02/11/25 08:00 02/11/25 08:00 02/11/25 08:00 02/11/25 08:00 02/11/25 08:00 02/11/25 08:00 02/11/25 00:53 Narrative Exam General: Middle age female. No acute distress, cooperative HEENT: NCAT, No JVD noted. Mucosa moist. Pupils are equal and reactive to light bilaterally Cardiovascular: Normal S1 and S2. Tachycardia. Regular rhythm. Chest pain reproducible. Respiratory: Lungs are clear to auscultation bilaterally. No wheezing or crackles heard. Abdomen: Soft, nontender, not distended, normal bowel sounds. Skin: Warm to touch, dry, no rashes noted Musculoskeletal: No gross injuries. Able to move all 4 extremities. No pitting edema Neuro: Alert and oriented x3. No focal neuro deficits. Psych: Normal affect and mood Objective Labs 02/11/25 04:35 02/11/25 04:35 Labs: Laboratory Results - last 24 hr 02/10/25 02/10/25 02/11/25 10:10 17:14 04:35 WBC 7.4 RBC 4.25 Hgb 7.7 L 8.2 L Hct 27.9 L 29.8 L MCV 70 L MCH 19.3 L MCHC 27.5 L RDW Std Deviation 42.6 Plt Count 462 H D Neut % (Auto) 58 Lymph % (Auto) 27 [place] % (Auto) 9 Eos % (Auto) 4 Baso % (Auto) 1 Neut # (Auto) 4.3 Lymph # (Auto) 2.0 [place] # (Auto) 0.7 Eos # (Auto) 0.3 Baso # (Auto) 0.1 Immature Gran # (Auto) 0.02 H Absolute Nucleated RBC 0.00 Immature Gran % 0 Nucleated RBC % 0 Retic Count (auto) 2.2 H Absolute Retic 88.9 H Immature Retic Fraction 24.2 H Retic Hgb Content CHr 17.1 L APTT 21.6 L Sodium 142 143 Potassium 4.0 4.2 Chloride 106 104 Carbon Dioxide 27.4 29.8 Anion Gap 9 9 BUN 10 8 L Creatinine 0.7 0.6 Estim Creat Clear Calc 74.2 86.6 eGFR > 60 > 60 BUN/Creatinine Ratio 14 13 Glucose 122 H 87 Calculated Osmolality 283 282 Calcium 9.1 9.0 Corrected Calcium 9.1 9.1 Phosphorus 4.0 Magnesium 1.8 Iron 17 L TIBC 503 H Iron Saturation 3 L Unsat Iron Binding 486 H Ferritin 3 L Total Bilirubin 0.4 0.5 AST 13 12 ALT 25 20 Alkaline Phosphatase 183 H 173 H Troponin I < 0.020 Total Protein 6.7 6.5 Albumin 4.1 3.9 Globulin 2.6 2.6 Albumin/Globulin Ratio 1.6 1.5 Vitamin B12 972 H Folate 12.29 TSH 0.05 L* Blood Type A Positive Antibody Screen NEGATIVE Blood Bank Wristband ID Yes Quality Measures Quality Measures VTE prophylaxis Assessment & Plan Assessment Current Active Medications: Generic Name Dose Route Start Last Admin Trade Name Freq PRN Reason Stop Dose Admin Acetaminophen 650 mg 02/10/25 17:06 02/11/25 08:36 Acetaminophen 325 Mg Tablet PO 03/12/25 17:05 650 mg Q6H PRN Administration Fever >100.1 or pain 1-3 Magnesium Sulfate 4 gm in 50 mls @ 12.5 mls/hr 02/11/25 07:52 02/11/25 08:35 Magnesium Sulfate Ivpb IV 02/11/25 11:51 12.5 mls/hr X1 ONE Administration Levothyroxine Sodium 125 mcg/ 150 mcg 02/11/25 06:00 02/11/25 05:09 Levothyroxine Sodium 25 mcg PO 03/13/25 05:59 150 mcg ACBR GENA Administration Morphine Sulfate 1 mg 02/10/25 18:43 02/11/25 05:09 Morphine Sulf Inj 4 Mg/Ml Vial IVP 1 mg Q4HR PRN Administration severe pain 7-10 Ondansetron HCl 4 mg 02/10/25 17:06 Ondansetron Inj 2 Mg/Ml Inj 2 Ml IVP 03/12/25 17:05 Q6H PRN NAUSEA OR VOMITING Protocol Pantoprazole Sodium 40 mg 02/11/25 06:00 02/11/25 08:35 Pantoprazole Inj 40 Mg Vial IVP 03/13/25 05:59 40 mg Q12HR GENA Administration Plan Priyanka Thomas is 64 yr female with PMH of hypothyroidism presenting to ED with chief complaint of chest pain that started about 1 week ago. Pleuritic in nature. Hb on admission was 8. Occult test was positive. GI Dr. Mccallum was consulted. Patient was given 80 mg Protonix and admitted for acute blood loss anemia secondary to GI bleed. pending egd and colonoscopy #Acute blood loss anemia 2/2 #GI bleed #Sinus Tachychardia Unknown if upper vs lower at this time. Patient denies hematemasis or melena. CBC significant for downtrending hemoglobin from 11.5 in July to 8, MCV 70 hematocrit 28 platelets 530. CTA chest was negative for PE or pleural disease. Occult test was positive. GI Dr. Mccallum was consulted. Patient was given 80 mg Protonix in ED. -Dr. Mccallum consulted, appreciate recs -NPO pending egd and colonoscopy today -IV Pantoprazole 40 mg BID -type and screen -daily CBC -transfuse if Hb <7 -iron pannel low. -Hold NSAIDs, antiplatelets -continue to monitor vitals #Hypothyroidism Resume home dose levothyroxine 150mcg daily - TSH low - pending T4 Headaches - APAP prn #ACS rule out-ruled out Health maintenance: Dispo: GI bleed, NPO pending EGD and colonoscopy today. FEN: NPO midnight DVT prophylaxis: SCDs CODE STATUS: Full code Plan discussed with Dr Redding, and Dr. Anival Wheeler MD PGY1
--- NOTE | 2025-02-11 10:52 | PC.SS ---
AERONAUTICAL ENGINEERING OFFICER conducted bedside contact with the patient conduct initial assessment and to discuss discharge planning.? Patient confirmed demographic information.? Patient resides at home with family.? 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 Patient does not utilize any form of DME to assist with ambulation.? Patient does not utilize home oxygen.? Patient currently on 2L oxygen.? Patient describes the ability to complete ADL?s independently.? Patient identified daughter, Stacy Mcdonnell ; as medical surrogate decision maker.? Patient?s PCP is Abe Rivera.? Patient does not participate with dialysis.? Patient does not possess any specialty providers.? Plan is for the patient to return home at the time of discharge.? If patient requires oxygen at the time of discharge, no preferred vendor identified.? Family will provide transportation on behalf of the patient.? No further discharge needs identified by the patient.? No further intervention required at this time, geriatric social worker will be available to address any further concerns.? Next of Kin: Stacy Mcdonnell D/C Plan: Home
--- NOTE | 2025-02-11 16:24 | PC.SS ---
Rounding Note: patient pending EGD and colonoscopy.
[2025-02-12] VITALS: BP 144/97; PULSE 100; PULSE 91; RESP 15; TEMP 36.1; O2SAT 98
[2025-02-12 04:00] VITALS: BP 150/87; PULSE 100; PULSE 88; RESP 16; TEMP 36.4; O2SAT 93
[2025-02-12] MEDS: LEVOTHYROXINE SODIUM 125 MCG, LEVOTHYROXINE SODIUM 25 MCG 150 MCG PO (05:15)
[2025-02-12 06:04] LABS: Basophils # (Auto) 0.1 Thou/mm3 (0.0-0.2); Basophils % (Auto) 1 % (0-2.5); Eosinophils # (Auto) 0.2 Thou/mm3 (0.0-0.5); Eosinophils % (Auto) 2 % (0-10); Hematocrit 27.3 % (36.0-46.0); Immature Granulocytes Auto 0.03 Thou/mm3 (0.00-0.00); Lymphocytes # (Auto) 1.5 Thou/mm3 (1.0-4.8); Lymphocytes % (Auto) 17 % (10-50); Mean Corpuscular HGB Conc 27.5 g/dl (31.0-37.0); Mean Corpuscular Hemoglobin 19.4 pg (25.0-35.0); Mean Corpuscular Volume 71 fL (80-100); Monocytes # (Auto) 0.7 Thou/mm3 (0.0-0.8); Monocytes % (Auto) 9 % (0-12); Neutrophils # (Auto) 6.0 Thou/mm3 (1.8-7.7); Neutrophils % (Auto) 71 % (37-80); Nucleated Red Blood Cell # 0.00 Thou/mm3 (0.00-0.00); Nucleated Red Blood Cell % 0 /100 WBC (0); Platelet Count 466 Thou/mm3 (140-440); RDW Standard Deviation 42.8 fL (36.4-46.3); Red Blood Count 3.86 Miln/mm3 (4.00-5.20); White Blood Count 8.4 Thou/mm3 (3.6-11.0)
[2025-02-12 06:06] LABS: Hemoglobin 7.5 g/dL (12.0-16.0)
[2025-02-12 06:29] LABS: Alanine Aminotransferase 14 U/L (10-49); Albumin, Serum 3.7 gm/dL (3.4-4.8); Albumin/Globulin Ratio 1.5 (1.2-2.2); Alkaline Phosphatase 163 U/L (46-116); Anion Gap 8 (7-16); Aspartate Amino Transferase 10 U/L (0-34); BUN/Creatinine Ratio 18 Ratio (12-20); Bilirubin,Total 0.2 mg/dL (0.3-1.2); Blood Urea Nitrogen 11 mg/dL (9-23); Calcium 8.7 mg/dL (8.3-10.6); Calcium (Corrected) 8.9 mg/dL (8.5-10.1); Carbon Dioxide 28.0 mMol/L (20.0-31.0); Chloride 109 mMol/L (98-107); Creatinine (Component) 0.6 mg/dL (0.6-1.3); Estimated Creatinine Clearance 86.6 mL/min (>60); Free T4 (Free Thyroxine) 1.94 ng/dL (0.89-1.76); Globulin 2.5 gm/dL (2.3-3.5); Glucose 119 mg/dL (74-106); Osmolality,Calculated 289 (275-295); Potassium 4.3 mMol/L (3.4-5.1); Sodium 145 mMol/L (136-145); Total Protein 6.2 gm/dL (5.7-8.2); eGFR > 60 See Note
[2025-02-12 08:00] VITALS: BP 162/87; PULSE 84; PULSE 95; RESP 18; TEMP 37.3; O2SAT 95
--- NOTE | 2025-02-12 08:12 | ESDS_ITS ---
<Statement entered by Linda Florian MD - 02/18/25 17:36> I reviewed above note and agree with findings and plans. I have also personally examined the patient with medicine team and went over assessment and plan with medical team including physician internist and resident physician. <Statement entered by Deborah Redding MD - 02/13/25 07:32> I discussed with and supervised the physician internist physician who took care of this patient. I personally saw and examined the patient and discussed the assessment and plan with the entire medicine team, including my attending Dr. Florian, I agree with most of the assessment and plan as documented below Deborah Redding M.D. PGY-3 Planned Discharge Date 02/12/25 DS: Providers Provider Date of admission: 02/10/25 17:49 Primary care physician: Abe Rivera DO Admitting Provider: Linda Florian MD Attending Provider on Admission: Linda Florian MD Consults: 02/10/25 15:07 Consult to Gastroenterology Stat Comment: Anemia, upper GI bleed Consulting Provider: Alonso Mccallum Attending Provider on DC: Linda Florian MD Discharging Provider: Linda Florian MD DS: Diagnosis Problem List Completed Was Problem List Reviewed/Reconciled?: Yes Hospital Course Hospital Course Hospital course: Hospital Course Edsell is 64 yr female with PMH of hypothyroidism presenting to ED with chief complaint of chest pain that started about 1 week ago (Pleuritic in nature), ACS workup negative. Hb on admission was 8. Occult test was positive admitted for workup of gi bleed s/p EGD with Dr. Mccallum, found to have non bleeding ulcers and gastritis, biopsys were taken. Hgb stable at time of discharge. Patient stable and medically cleared for discharge Discharge instructions Please start taking Protonix 40mg twice daily for 1 month, and then continue a daily dose for three more months. Please see your mangle roll operator to adjust your levothyroxine dose. Pleave avoid any NSAIDs such as Advil, Motrin or Ibuprofen. Please continue to take your home medications as prescribed. Please return to the ED if your symptoms worsen. Please follow up with your PCP and GI for your pathology results. Diagnoses Plan discussed with Dr Redding, and Dr. Anival Wheeler MD PGY1 Time Spent with Patient Time attestation: Total time spent providing and/or coordinating discharge services: Time spent: Greater than 30 minutes Exam Vital Signs Temp Pulse Resp BP Pulse Ox O2 Del Method O2 Flow Rate 97.5 F 100 16 150/87 H 93 L Room Air 2 02/12/25 04:00 02/12/25 04:00 02/12/25 04:00 02/12/25 04:00 02/12/25 04:00 02/12/25 04:00 02/11/25 20:10 Narrative Exam General: Middle age female. No acute distress, cooperative HEENT: NCAT, No JVD noted. Mucosa moist. Pupils are equal and reactive to light bilaterally Cardiovascular: Normal S1 and S2. Tachycardia. Regular rhythm. Chest pain reproducible. Respiratory: Lungs are clear to auscultation bilaterally. No wheezing or crackles heard. Abdomen: Soft, nontender, not distended, normal bowel sounds. Skin: Warm to touch, dry, no rashes noted Musculoskeletal: No gross injuries. Able to move all 4 extremities. No pitting edema Neuro: Alert and oriented x3. No focal neuro deficits. Psych: Normal affect and mood Discharge Plan Plan Patient Disposition: HOME (Self Care) Prescriptions/Referrals Prescriptions/Med Rec: New pantoprazole [Protonix] 40 mg tablet,delayed release (DR/EC) 40 mg PO BID Qty: 60 0RF Continued levothyroxine 125 mcg capsule 225 mcg PO QDAY Referrals: Abe Rivera DO [Primary Care Provider] Alonso cMcallum MD [Physician, Gastroenterology] Patient/Caregiver Discharge Instructions Discharge Activity: activity as tolerated Other Discharge Activity Instructions:: Please start taking Protonix 40mg twice daily for 1 month, and then continue a daily dose for three more months. Please see your mangle roll operator to adjust your levothyroxine dose. Pleave avoid any NSAIDs such as Advil, Motrin or Ibuprofen. Please continue to take your home medications as prescribed. Please return to the ED if your symptoms worsen. Please follow up with your PCP and GI for your pathology results. Education Materials: Protonix Oral Tablet 40 mg, Bleeding Gastrointestinal, Anemia Print Language: [place] Stand Alone Forms: [facility] Award Info., Patient Portal Info Letter, Work/Release Restrictions Discharge Order Discharge Orders: Discharge (Routine); Ordered 02/12/25 Ordered By: Deborah Redding Quality Discharge Quality Measures VTE prophylaxis
--- NOTE | 2025-02-12 10:28 | PC.NURSE ---
This nurse called to get cardiac reading at 1000 d/t patient being in the shower at 0800. Patient reading was sinus rhythm 95 bpm with PVCs. This nurse notified Dr. Cabello at [phone].
[2025-02-12 10:43] LABS: Hematocrit 28.8 % (36.0-46.0)
[2025-02-12 10:44] LABS: Hemoglobin 8.1 g/dL (12.0-16.0)
[2025-02-12 12:00] VITALS: BP 153/87; PULSE 100; RESP 18; TEMP 36.4; O2SAT 94
--- NOTE | 2025-02-12 20:09 | ESPR_ITS ---
Documentation for date of: 02/12/25 Subjective Subjective Interval history: Late entry for the note upper endoscopy showed distal esophageal ulcers Colonoscopy showed large internal hemorrhoids requiring banding however that procedure did not get transferred to the [place] which I will work on Saturday Okay to discharge patient home to be followed as an outpatient Exam Vital Signs Temp Pulse Resp BP Pulse Ox O2 Del Method O2 Flow Rate 97.5 F 100 18 153/87 H 94 L Room Air 2 02/12/25 12:00 02/12/25 12:00 02/12/25 12:00 02/12/25 12:00 02/12/25 12:00 02/12/25 12:00 02/11/25 20:10 Objective Labs 02/12/25 10:30 02/12/25 04:56 Labs: Laboratory Results - last 24 hr 02/12/25 02/12/25 04:56 10:30 WBC 8.4 RBC 3.86 L Hgb 7.5 L 8.1 L Hct 27.3 L 28.8 L MCV 71 L MCH 19.4 L MCHC 27.5 L RDW Std Deviation 42.8 Plt Count 466 H Neut % (Auto) 71 Lymph % (Auto) 17 [place] % (Auto) 9 Eos % (Auto) 2 Baso % (Auto) 1 Neut # (Auto) 6.0 Lymph # (Auto) 1.5 [place] # (Auto) 0.7 Eos # (Auto) 0.2 Baso # (Auto) 0.1 Immature Gran # (Auto) 0.03 H Absolute Nucleated RBC 0.00 Immature Gran % 0 Nucleated RBC % 0 Sodium 145 Potassium 4.3 Chloride 109 H Carbon Dioxide 28.0 Anion Gap 8 BUN 11 Creatinine 0.6 Estim Creat Clear Calc 86.6 eGFR > 60 BUN/Creatinine Ratio 18 Glucose 119 H Calculated Osmolality 289 Calcium 8.7 Corrected Calcium 8.9 Total Bilirubin 0.2 L AST 10 ALT 14 Alkaline Phosphatase 163 H Total Protein 6.2 Albumin 3.7 Globulin 2.5 Albumin/Globulin Ratio 1.5 Free T4 1.94 H Impressions Impression: GI bleed secondary to esophageal varices as well as large internal hemorrhoids requiring band ligation Okay to discharge patient home If there are any issues with the GI bleeding patient will see me in follow-up as an outpatient Assessment & Plan Time Spent With Patient Time: Total time spent is greater than 50% in coordination of care (as documented) at patient's floor/unit and/or counseling patient:
== END 2025-02-12 13:16 | disposition home or self-care (01) | DRG 348 ==
LOC: SERX 15:45 → SERHOLD 17:51 → S2NX 19:54 → S3NX 02-12 06:09
PROVIDERS: Nurse Practitioner Family; Nurse Practitioner Primary Care; Specialist; Admitting Provider Internal Medicine; Emergency Provider Emergency Medicine; PCP Internal Medicine; Visit Provider Internal Medicine
PROC: 0DB48ZX Excision of Esophagogastric Junction, Via Natural or Artificial Opening Endoscopic, Diagnostic (ICD-10-PCS; CPT 43239; principal; 2025-02-11 19:00)
PROC: 0DJD8ZZ Inspection of Lower Intestinal Tract, Via Natural or Artificial Opening Endoscopic (ICD-10-PCS; CPT 45378; 2025-02-11 19:00)
DX: I85.01 Esophageal varices with bleeding (principal); D62 Acute posthemorrhagic anemia; I47.20 Ventricular tachycardia, unspecified; K22.11 Ulcer of esophagus with bleeding; E03.9 Hypothyroidism, unspecified; K29.71 Gastritis, unspecified, with bleeding; R07.89 Other chest pain; Z79.899 Other long term (current) drug therapy; K64.2 Third degree hemorrhoids; Z87.891 Personal history of nicotine dependence; Z88.2 Allergy status to sulfonamides; Z88.5 Allergy status to narcotic agent; Z88.8 Allergy status to other drugs, medicaments and biological substances; Z79.890 Hormone replacement therapy; K57.31 Diverticulosis of large intestine without perforation or abscess with bleeding
CPT/HCPCS: 36415; 71046; 71275; 80053; 82607; 82728; 82746; 83540; 83550; 83735; 84100; 84439; 84443; 84484; 85014; 85018; 85025; 85046; 85730; 86850; 86900; 86901; 93005; 94762; 96374; 96375; 96376; 99284; A4649; J1171; J1200; J2250; J2270; J2405; J2470; J3010; J3475; Q9967; A9270

== ENCOUNTER 2025-05-04 10:13 | Emergency (ER) | payer BC, SELFPAY ==
[2025-05-04 11:04] VITALS: BP 148/101; PULSE 93; RESP 19; TEMP 36.9; O2SAT 97; BMI 30.4
--- NOTE | 2025-05-04 11:57 | PC.NURSE ---
PT WAS IN A LOT OF PAIN AND IT HURT TO WAIT. SHE GOT AN APPT W/ HER PCP FOR 14:00 SO LEFT. PT SIGNED AMA FORM.
--- NOTE | 2025-05-04 12:00 | PD.EDADULT ---
ED General RME/HPI General Chief complaint: General Adult/Misc Complain Stated complaint: ARTHRITIS FLAIR UP Time Seen by Provider: 05/04/25 11:30 Arrival date/time: 05/04/25 10:13 OPAL / GARO BELTR[facility]N complaint: Arthritis flare RME / HPI narrative: 64-year-old female with a past medical history of RA negative polyarthralgia who presents to the ER complaining of an acute exacerbation of her chronic arthritis. Patient has had x-rays of her shoulders in the past and is being worked up by her PMD who believes she may have a precursor to RA. Denies trauma, fever, nausea, vomiting, rash. 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 Related Data Home Medications ?Medication ?Instructions ?Recorded ?Confirmed levothyroxine 125 mcg capsule 225 mcg PO QDAY 01/14/19 02/10/25 Previous Rx's ?Medication ?Instructions ?Recorded pantoprazole 40 mg tablet,delayed 40 mg PO BID #60 tabs 02/12/25 release (Protonix) Allergies Allergy/AdvReac Type Severity Reaction Status Date / Time Sulfa (Sulfonamide Allergy Intermediate RASH Verified 05/04/25 10:17 Antibiotics) codeine Allergy Unknown Rash Verified 05/04/25 10:17 lisinopril Allergy Rash Verified 05/04/25 10:17 Lxjagzf-MRT-OcT Reductase Allergy Vomiting Verified 05/04/25 10:17 Inhibitor (Raodjez-Ycs-Yxb Reductase Inhibitor) ED Exam Narrative Physical exam: Constitutional: Patient alert and oriented. Well appearing. No acute distress. Not toxic appearing. Head: Normocephalic, atraumatic. Eyes: Periorbital regions bilaterally normal to inspection. Conjunctiva clear bilaterally. Sclera anicteric bilaterally. Pupils equal, round, reactive to light bilaterally. Extraocular movements intact bilaterally. Mouth/Throat: Mucous membranes moist. No stridor or muffled voice. No trismus. Handling secretions without difficulty. Airway widely patent. Neck: Supple. Trachea midline. No JVD. No nuchal rigidity. Normal range of motion. Respiratory: Normal effort. No accessory muscle use or respiratory distress. Lungs clear to auscultation bilaterally without rhonchi, wheezes, or crackles. Cardiovascular: RRR. Normal S1/S2. No murmurs or rubs. Radial pulses intact bilaterally. Abdomen: Soft. Non-distended. Non-tender throughout. No pulsatile mass. No guarding or rebound. Negative Dave?s sign. Negative McBurney?s point tenderness. Negative Rovsing?s. Back: No midline tenderness or step-offs. No CVA tenderness to palpation bilaterally. Upper Extremities: No gross deformities. Mild limited range of motion and strength 5 out of 5 for major joints of upper extremities bilaterally. Lower Extremities: No gross deformities. No edema or calf tenderness. Mild limited range of motion and strength 5 out of 5 for major joints of lower extremities bilaterally. Neuro: Speech normal. No gross motor or sensory deficits to upper or lower extremities bilaterally. GCS 15. CN II?XII grossly intact. Skin: Warm, dry, normal color. No erythema, ecchymosis. Psych: Normal affect. Cooperative. Normal insight. Course Quality Measures none Orders Category Date Time Status Acetaminophen Tab [Tylenol Tab] Med 05/04/25 12:09 Discontinued 650 mg PO X1 ONE Vital Signs Vital signs: Vital Signs Temperature 98.5 F 05/04/25 11:04 Pulse Rate 93 05/04/25 11:04 Respiratory Rate 19 05/04/25 11:04 Blood Pressure 148/101 H 05/04/25 11:04 Pulse Oximetry (%) 97 05/04/25 11:04 Oxygen Delivery Method Room Air 05/04/25 11:04 Discharge Plan Plan Patient Disposition: Left Against Medical Advice Patient condition on transfer: Stable Prescriptions/Referrals Prescriptions/Med Rec: No Action levothyroxine 125 mcg capsule 225 mcg PO QDAY pantoprazole [Protonix] 40 mg tablet,delayed release (DR/EC) 40 mg PO BID Qty: 60 0RF Problem List Clinical Impression: Polyarthralgia Patient/Caregiver Discharge Instructions Print Language: Kos[place] PA/TREATING PLANT SUPERVISOR Supervising Physician PA/TREATING PLANT SUPERVISOR Supervising Physician: Dr. Wood MDM Narrative MDM hospital course (for use when minimal MDM required): 64-year-old female presents ER complaining of acute exacerbation of her chronic polyarthralgia. No appreciation for focal septic arthritis Suspect acute exacerbation of chronic autoimmune polyarthralgia however pt requested XRs of her extremities This patient has chosen to leave the Emergency Department against medical advice. The risks involved in refusing further diagnostic testing and medical care have been explained to the patient in detail. The risks include progression of current medical condition, permanent disability, and, potentially, . The patient demonstrates an understanding of the risk and is competent to make this decision at this time. Medication Administration(s) Medication Administration History Discontinued Medications Acetaminophen (Acetaminophen 325 Mg Tablet) 650 mg PO X1 ONE Stop: 05/04/25 12:10
== END 2025-05-04 11:57 | disposition left against medical advice (07) ==
LOC: SERX 12:40
PROVIDERS: Emergency Provider Emergency Medicine
DX: M25.50 Pain in unspecified joint (principal); Z53.29 Procedure and treatment not carried out because of patient's decision for other reasons
CPT/HCPCS: 99281